=== PATIENT | female | born 1965 | race African-American/Black ===

== ENCOUNTER 2023-09-18 16:45 | Inpatient (IN) | payer OTHER ==
[2023-09-18] MEDS ORDERED: IBUPROFEN 600 MG TABLET (FP) PO PRN (19:30)
[2023-09-18] MEDS ORDERED: DICYCLOMINE HCL 10 MG CAPSULE PO PRN (19:30)
[2023-09-18] MEDS ORDERED: NALOXONE (NARCAN) HCL 4 MG/0.1 ML SPRAY NS PRN (19:30)
[2023-09-18] MEDS ORDERED: guaiFENesin 600 MG TABLET.ER (FP) PO PRN (19:30)
[2023-09-18] MEDS ORDERED: POLYETHYLENE GLYCOL (HEALTHYLAX) 3350 17 GM PACKET PO PRN (19:30)
[2023-09-18] MEDS ORDERED: diazePAM 5 MG TABLET PO PRN (19:30)
[2023-09-18] MEDS ORDERED: BISMUTH SUBSALICYLATE 524 MG/30 ML PO PRN (19:30)
[2023-09-18] MEDS ORDERED: MAG HYDROX/AL HYDROX/SIMETH 30 ML UNIT-DOSE CUP PO PRN (19:30)
[2023-09-18] MEDS ORDERED: BENZONATATE 200 MG CAPSULE PO PRN (19:30)
[2023-09-18] MEDS ORDERED: MAGNESIUM HYDROX 2400MG/30ML ORAL SUSPENSION 30 ML CUP PO PRN (19:30)
[2023-09-18] MEDS ORDERED: NALOXONE HCL 0.4 MG/ML VIAL IM PRN (19:30)
[2023-09-18] MEDS ORDERED: BENZOCAINE/MENTHOL (CHLORASEPTIC ) LOZENGE MM PRN (19:30)
[2023-09-18] MEDS ORDERED: LOPERAMIDE HCL 2 MG CAPSULE PO PRN (19:30)
[2023-09-18] MEDS ORDERED: hydrOXYzine PAMOATE 25 MG CAPSULE (FP) PO PRN (19:30)
[2023-09-18] MEDS ORDERED: ONDANSETRON *ODT* 4 MG TABLET SL PRN (19:30)
[2023-09-18] MEDS ORDERED: IBUPROFEN 400 MG TABLET (FP) PO PRN (19:30)
[2023-09-18] MEDS: MELATONIN 5 MG TABLETS PO SCH (22:44)
[2023-09-18] MEDS: METHOCARBAMOL 500 MG TABLET PO PRN (22:44)
[2023-09-18] MEDS: THIAMINE 100 MG TABLET PO SCH (22:44)
[2023-09-18] MEDS: diazePAM 5 MG TABLET PO SCH (22:47)
[2023-09-19] MEDS: INSULIN ASPART SLIDING SCALE (NOVOLOG) 1 VIAL SQ SCH (07:04)
[2023-09-19 09:31] LABS: CHLORIDE 104 mmol/L (98-107); POTASSIUM 3.9 mmol/L (3.5-5.1); SODIUM 140 mmol/L (136-145)
[2023-09-19 09:34] LABS: HEMATOCRIT 35.6 % (32.4-45.2); MCH 30.9 pg (25.7-33.7); MCHC 33.8 g/dl (32.0-36.0); MEAN CELL VOLUME 91.4 fl (80-96); MEAN PLT VOLUME 9.3 fl (7.5-11.1); PLATELET COUNT 69 10^3/uL (134-434); RDW 15.1 % (11.6-15.6); WHITE BLOOD COUNT 2.2 K/mm3 (4.0-10.0)
[2023-09-19 09:37] LABS: CALCIUM 8.6 mg/dL (8.5-10.1)
[2023-09-19 09:38] LABS: ALBUMIN 3.2 g/dl (3.4-5.0); ANION GAP 5 mmol/L (4-13); BLOOD UREA NITROGEN 28.8 mg/dL (7-18); CO2 30 mmol/L (21-32); GLUCOSE,RANDOM 96 mg/dL (74-106)
[2023-09-19 09:40] LABS: SGOT/AST 67 U/L (15-37); SGPT/ALT 52 U/L (13-61)
[2023-09-19 09:42] LABS: TOT PROT 6.1 g/dl (6.4-8.2)
[2023-09-19 09:43] LABS: ALK PHOS 190 U/L (45-117)
[2023-09-19 09:51] LABS: BILIRUBIN,TOTAL 0.7 mg/dL (0.2-1)
[2023-09-19] MEDS: PRENATAL VITAMINS W/ FOLIC ACID TABLET (FP) PO SCH (10:10)
[2023-09-19] MEDS ORDERED: ALBUTEROL SO4 HFA INHALER IH PRN (13:50)
[2023-09-19] MEDS ORDERED: ATORVASTATIN CA 40 MG TABLET (FP) PO SCH (22:00)
[2023-09-19] MEDS: ATORVASTATIN CA 40 MG TABLET (FP) PO SCH (22:34)
[2023-09-19] MEDS: SACUBITRIL/VALSARTAN 24 MG-26 MG TABLET PO SCH (22:34)
[2023-09-19] MEDS: ARTIFICIAL TEARS OPHTHALMIC DROPS OU SCH (22:36)
[2023-09-20] MEDS: FUROSEMIDE 40 MG TABLET (FP) PO SCH (05:51)
[2023-09-20] MEDS: diazePAM 5 MG TABLET PO SCH (06:00)
[2023-09-20] MEDS: EMPAGLIFLOZIN (JARDIANCE) 10 MG TABLET PO SCH (06:14)
[2023-09-20] MEDS: ACETAMINOPHEN 325 MG TABLET (FP) PO PRN (08:53)
[2023-09-20] MEDS ORDERED: ENTRESTO PO SCH (10:00)
[2023-09-20] MEDS ORDERED: ASPIRIN 81 MG CHEWABLE TABLETS PO SCH (10:00)
[2023-09-20] MEDS: DOCUSATE SODIUM 100 MG CAPSULE (FP) PO SCH (10:08)
[2023-09-20] MEDS: GABAPENTIN 300 MG CAPSULE PO SCH (10:09)
[2023-09-20] MEDS: FOLIC ACID 1 MG TABLET (FP) PO SCH (10:12)
[2023-09-20] MEDS: CHOLECALCIFEROL (VIT D3) 1,000 UNIT (25 MCG) TABLET PO SCH (10:12)
[2023-09-20] MEDS: DIGOXIN 0.125 MG TABLET PO SCH (16:15)
[2023-09-21] MEDS: diazePAM 5 MG TABLET PO SCH (05:41)
[2023-09-21 09:28] VITALS: BP 126/66; RESP 16; TEMP 97.7
[2023-09-21 10:55] VITALS: PULSE 78
[2023-09-21] MEDS: ALBUTEROL SO4 HFA INHALER IH PRN (10:56)
[2023-09-22] MEDS ORDERED: diazePAM 5 MG TABLET PO ONE (06:00)
== END 2023-09-21 12:17 | disposition home or self-care (01) | DRG 774 ==
LOC: YASAS 16:45 → Y6N 19:49
PROVIDERS: ADMIT Allergy & Immunology; ATTEND Surgery
PROC: HZ2ZZZZ Detoxification Services for Substance Abuse Treatment (ICD-10-PCS; principal; 2023-09-18)
DX: F10.230 Alcohol dependence with withdrawal, uncomplicated (principal); F14.20 Cocaine dependence, uncomplicated; F16.20 Hallucinogen dependence, uncomplicated; F17.210 Nicotine dependence, cigarettes, uncomplicated; F19.982 Other psychoactive substance use, unspecified with psychoactive substance-induced sleep disorder; F19.94 Other psychoactive substance use, unspecified with psychoactive substance-induced mood disorder; I11.0 Hypertensive heart disease with heart failure; I50.9 Heart failure, unspecified; I48.91 Unspecified atrial fibrillation; D72.819 Decreased white blood cell count, unspecified; J45.20 Mild intermittent asthma, uncomplicated; E78.5 Hyperlipidemia, unspecified; D69.6 Thrombocytopenia, unspecified; K59.00 Constipation, unspecified; K21.9 Gastro-esophageal reflux disease without esophagitis; E05.90 Thyrotoxicosis, unspecified without thyrotoxic crisis or storm; M17.11 Unilateral primary osteoarthritis, right knee; E11.9 Type 2 diabetes mellitus without complications; Z56.0 Unemployment, unspecified
CPT/HCPCS: 36415; 80053; 80305; 80307; 82962; 85027; 86780; 93005; 93010